=== PATIENT | female | born 1995 | race Caucasian/White ===

== ENCOUNTER 2020-04-30 16:10 | Emergency (ER) | payer MEDICAID, SELFPAY ==
[~2020-04-30] VITALS: Ht 162.6 cm; Wt 54.4 kg
[2020-04-30 16:55] VITALS: BP 97/51
[2020-04-30 18:43] VITALS: BP 97/51
== END 2020-04-30 18:42 | disposition home or self-care (01) ==
LOC: MED 16:10 → EEVIPCON 16:10 → MED 18:42
DX: B34.9 Viral infection, unspecified (principal); Z20.828 Contact with and (suspected) exposure to other viral communicable diseases
CPT/HCPCS: 99283; U0003; 99282

== ENCOUNTER 2020-05-09 14:31 | Emergency (ER) | payer MEDICAID, SELFPAY ==
[~2020-05-09] VITALS: Ht 162.6 cm; Wt 54.4 kg
[2020-05-09 14:56] VITALS: BP 91/49
[2020-05-09 15:37] VITALS: BP 105/50
== END 2020-05-09 15:37 | disposition home or self-care (01) ==
LOC: EEVIPCON 14:31 → MED 14:31
DX: M79.10 Myalgia, unspecified site (principal); R50.9 Fever, unspecified; Z20.828 Contact with and (suspected) exposure to other viral communicable diseases
CPT/HCPCS: 99283; U0003

== ENCOUNTER 2021-01-01 14:47 | Emergency (ER) | payer MEDICAID, SELFPAY ==
[~2021-01-01] VITALS: Ht 160 cm; Wt 63.5 kg
[2021-01-01 14:58] VITALS: BP 102/61
--- NOTE | 2021-01-01 15:00 | NUR ---
PT IN TENT FOR COVID PRECAUTIONS
--- NOTE | 2021-01-01 15:06 | NUR ---
25 Y/O FEMALE FROM HOME C/O HEADACHE AND LOSS OF TASTE AND SMELL SINCE THIS MORNING. UNKNOWN COVID CONTACT. DENIES COUGH/SOB. 6/10 ACHING PAIN TO HEAD. AWAKE AND ALERT. VSS MEDHX: DENIES
--- NOTE | 2021-01-01 15:21 | NUR ---
DR RANKIN IN TENT EXAMINING PATIENT.
--- NOTE | 2021-01-01 15:44 | NUR ---
FLU SWAB COLLECTED AND GIVEN TO LAB.
--- NOTE | 2021-01-01 16:42 | NUR ---
INFLUENZA A AND B+. DR RANKIN MADE AWARE.
[2021-01-01 16:57] VITALS: BP 108/64
--- NOTE | 2021-01-01 16:58 | NUR ---
Patient discharged with v/s stable. Written and verbal after care instructions given and explained. Patient alert, oriented and verbalized understanding of instructions. Ambulatory with steady gait. All questions addressed prior to discharge. ID band removed. Patient advised to follow up with PMD. Rx of TAMIFLU 75MG given. Patient educated on indication of medication including possible reaction and side effects. Opportunity to ask questions provided and answered.
== END 2021-01-01 16:58 | disposition home or self-care (01) ==
LOC: MED 14:47
DX: J11.1 Influenza due to unidentified influenza virus with other respiratory manifestations (principal)
CPT/HCPCS: 87804; 99283

== ENCOUNTER 2021-09-20 10:50 | Emergency (ER) | payer MEDICAID, SELFPAY ==
[~2021-09-20] VITALS: Ht 162.6 cm; Wt 54.9 kg
[2021-09-20 10:55] VITALS: BP 112/65
== END 2021-09-20 11:51 | disposition home or self-care (01) ==
LOC: MED 10:50
DX: T19.2XXA Foreign body in vulva and vagina, initial encounter (principal); X58.XXXA Exposure to other specified factors, initial encounter; Y93.89 Activity, other specified; Y92.89 Other specified places as the place of occurrence of the external cause; Y99.8 Other external cause status
CPT/HCPCS: 99284

== ENCOUNTER 2022-11-10 22:49 | Emergency (ER) | payer MEDICAID ==
[~2022-11-10] VITALS: Ht 162.6 cm; Wt 54.4 kg
[2022-11-10 23:17] VITALS: BP 124/59
--- NOTE | 2022-11-10 23:20 | NUR ---
TO LOBBY A/W BED AMBULATORY
[2022-11-11] MEDS ORDERED: FAMOTIDINE 20 MG TAB PO ONE (02:40)
[2022-11-11] MEDS ORDERED: ONDANSETRON 4 MG ODT PO ONE (02:40)
[2022-11-11] MEDS ORDERED: ONDA-188 PO (02:44)
[2022-11-11] MEDS ORDERED: FAMO-90 PO (02:44)
[2022-11-11 02:52] VITALS: BP 118/78
--- NOTE | 2022-11-11 02:52 | NUR ---
Patient discharged with v/s stable. Written and verbal after care instructions given and explained. Patient alert, oriented and verbalized understanding of instructions. Ambulatory with steady gait. All questions addressed prior to discharge. ID band removed. Patient advised to follow up with PMD. Rx of ZOFRAN AND PEPCID given. Patient educated on indication of medication including possible reaction and side effects. Opportunity to ask questions provided and answered.
== END 2022-11-11 02:52 | disposition home or self-care (01) ==
LOC: MED 22:49
DX: R11.2 Nausea with vomiting, unspecified (principal); F10.129 Alcohol abuse with intoxication, unspecified; Y90.9 Presence of alcohol in blood, level not specified
CPT/HCPCS: 99283; Q0162

== ENCOUNTER 2024-09-06 17:54 | Emergency (ER) | payer MEDICAID ==
[~2024-09-06] VITALS: Ht 162.6 cm; Wt 56.7 kg
[~2024-09-06 17:54] MED LIST: FAMO-90 PO; ONDA-188 PO
[2024-09-06 18:06] VITALS: BP 109/71; PULSE 85; RESP 18; TEMP 98.4; O2SAT 98
[2024-09-06 19:37] LABS: APPEARANCE,URINE CLEAR (CLEAR); BILIRUBIN,URINE NEGATIVE (NEGATIVE); BLOOD, URINE NEGATIVE (NEGATIVE); COLOR,URINE YELLOW (YELLOW); LEUKOCYTE ESTERASE ,URINE NEGATIVE (NEGATIVE); NITRITE, URINE NEGATIVE (NEGATIVE); PROTEIN,URINE NEGATIVE (NEGATIVE); UGLUCOSE NEGATIVE (NEGATIVE); UROBILINOGEN,URINE 0.2 EU/dL (0.2 - 1)
[2024-09-06 19:42] LABS: BASOPHILS # (AUTO) 0.1 K/uL (0.00-0.22); BASOPHILS % (AUTO) 0.6 % (0.0-2.0); EOSINOPHILS # (AUTO) 0.1 K/uL (0-0.4); EOSINOPHILS % (AUTO) 1.6 % (0.0-4.0); HEMATOCRIT 39.4 % (36-48); LYMPHOCYTES # (AUTO) 2.4 K/uL (2.5-16.5); LYMPHOCYTES % (AUTO) 26.7 % (20.5-51.1); MEAN CORPUSCULAR HEMOGLOBIN 28 pg (27-31); MEAN CORPUSCULAR HGB CONC 33 g/dL (33-37); MEAN CORPUSCULAR VOLUME 85.2 fL (80-94); MONOCYTES # (AUTO) 0.5 K/uL (0.8-1.0); MONOCYTES % (AUTO) 5.6 % (1.7-9.3); NEUTROPHILS # (AUTO) 5.8 K/uL (1.8-7.7); NEUTROPHILS % (AUTO) 65.5 % (42.2-75.2); PLATELET COUNT (AUTO) 213 K/uL (140-450); RED BLOOD CELL COUNT(AUTO) 4.63 MIL/uL (4.20-5.40); RED CELL DISTRIBUTION WIDTH 13.2 % (11.6-13.7); WHITE BLOOD COUNT (AUTO) 8.9 K/uL (4.8-10.8)
[2024-09-06 19:57] LABS: ANION GAP 11.8 (8-16); CALCIUM 9.2 mg/dL (8.5-10.1); CARBON DIOXIDE 29.9 mmol/L (21-32); CREATININE 0.9 mg/dL (0.6-1.3); POTASSIUM 3.7 mmol/L (3.5-5.1)
[2024-09-06 20:04] LABS: ALBUMIN 4.1 g/dL (3.4-5.0); BILIRUBIN,DIRECT 0.1 mg/dL (0.0-0.3); TOTAL BILIRUBIN 0.5 mg/dL (0.0-1.0); TOTAL PROTEIN, SERUM 7.9 g/dL (6.4-8.2)
[2024-09-06 21:15] VITALS: BP 109/71; PULSE 85; RESP 18; TEMP 98.4
[2024-09-06 21:21] VITALS: O2SAT 98
[2024-09-06] MEDS ORDERED: ONDA-188 SL (21:42)
[2024-09-06] MEDS: ONDANSETRON 4 MG ODT PO ONE (21:52)
== END 2024-09-06 21:55 | disposition home or self-care (01) ==
LOC: MED 17:54
DX: A05.9 Bacterial foodborne intoxication, unspecified (principal); Z79.899 Other long term (current) drug therapy
CPT/HCPCS: 36415; 80048; 80076; 81003; 81025; 83690; 85025; 99283; Q0162